=== PATIENT | male | born 1965 | race Caucasian/White ===

== ENCOUNTER 2018-10-06 15:08 | Emergency (ER) | payer MEDICAID, OTHER ==
--- OUTSIDE RECORDS SUMMARY | 2018-10-06 15:10 | XMS REPORT ---
:1965 Author Organization eClinicalWorks Care Team Providers Name Role Phone Kev Naveen Provider Role Unavailable Allergies, Adverse Reactions, Alerts Substance Reaction Event Type N.K.D.A. 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
--- OUTSIDE RECORDS SUMMARY | 2018-10-06 15:10 | XMS REPORT ---
:1965 Author Organization eClinicalWorks Care Team Providers Name Role Phone Kev [facility] Provider Role Unavailable Allergies, Adverse Reactions, Alerts Substance Reaction Event Type N.K.D.A. Info Not Available Non Drug Allergy Problems Problem Type Condition Code Onset Dates Condition Status Problem Severe anxiety with panic F41.0 Active Problem Tobacco use disorder F17.200 Active Assessment Severe anxiety with panic F41.0 Active Assessment Tobacco use disorder F17.200 Active Medications Medication Code Code Instructions Start End Date Status Dosage System Date Alprazolam [facility] [id number] 2 MG Orally Jul 07, Active 1 tablet on Twice a day 2017 the tongue and allow to dissolve Xanax ND [id number] 2 MG Orally Active 1 tablet Twice a day Results No Known Results Summary Purpose eClinicalWorks Submission
[2018-10-06] MEDS ORDERED: FENTANYL CITR 100 MCG/2 ML ONE (16:41)
[2018-10-06] MEDS ORDERED: ONDANSETRON 4 MG/2 ML VIAL ONE (16:41)
[2018-10-06] MEDS ORDERED: NA CHLORIDE 0.9% 1,000 ML ONE (16:41)
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
[2018-10-06 17:31] LABS: Absolute Lymphocytes (CBC) 1.7 K/uL (0.7-4.9); Absolute Monocytes 0.5 K/uL (0.1-1.3); Absolute Neutrophil 3.6 K/uL (1.8-8.0); Basophils % 0.7 % (0-1.3); Hematocrit 42.1 % (39.6-49.0); MPV 10.8 fL (7.6-11.3); Monocytes % 8.1 % (3.3-12.3); RBC Red Blood Cell Count 4.73 M/uL (4.33-5.43)
[2018-10-06 17:45] LABS: BUN Blood Urea Nitrogen 14 mg/dL (7-18); Bicarbonate 29 mmol/L (21-32); Glucose Level 86 mg/dL (74-106); Potassium 3.7 mmol/L (3.5-5.1); Sodium Level 139 mmol/L (136-145)
[2018-10-06] MEDS ORDERED: KETOROLAC 30 MG/ML INJ ONE (18:23)
[2018-10-06] MEDS ORDERED: LORAZEPAM 1 MG TABLET ONE (18:29)
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
--- NOTE | 2018-10-06 19:21 | RAD REPORT ---
EXAM DESCRIPTION: RAD - Humerus Left - 10/06/2018 6:59 pm CLINICAL HISTORY: PAIN COMPARISON: Head C Spine Cap Wo Con dated 10/06/2018 FINDINGS: No fracture or dislocation seen.
--- NOTE | 2018-10-06 19:22 | RAD REPORT ---
EXAM DESCRIPTION: RAD - Forearm Left - 10/06/2018 6:59 pm CLINICAL HISTORY: PAIN Trauma, pain COMPARISON: No comparisons FINDINGS: No acute fracture or dislocation seen.
[2018-10-06 19:36] LABS: Blood Morphology Comment NOT SEEN (NOT SEEN); Platelet Estimate ADEQ; Platelets, Giant FEW PRESENT; Urine White Blood Cell Casts OK
[2018-10-06 19:44] VITALS: BP 119/74; TEMP 98.6; O2SAT 97
== END 2018-10-06 19:32 | disposition home or self-care (01) ==
LOC: ER 15:08
DX: M79.605 Pain in left leg (principal); V03.90XA Pedestrian on foot injured in collision with car, pick-up truck or van, unspecified whether traffic or nontraffic accident, initial encounter; F17.210 Nicotine dependence, cigarettes, uncomplicated
CPT/HCPCS: 36415; 70450; 71250; 72125; 80048; 85025; 86850; 86900; 86901; 96374; 96375; 99285; J2405; J3010; J7030